=== PATIENT | female | born 1950 | race Two or more races ===

== ENCOUNTER 2025-08-29 09:55 | Inpatient (IN) | payer OTHER, MEDICARE, SELFPAY ==
[2025-08-29] VITALS (15 sets, daily range): BP systolic 93–140; BP diastolic 61–89; PULSE 75–116; RESP 20–35; TEMP 36.5–36.9; O2SAT 91–97; BMI 30.8
--- NOTE | 2025-08-29 09:58 | EKG_ITS ---
[facility] Test Date: 2025-08-29 Pat Name: KENNEDY HUERTAS Department: Room: - Gender: Female Sales Marketing Coordinator: : 1950 Requested By: Antoinette Barfield Order Number: [id number] Reading MD: Antoinette Barfield Measurements Intervals Ruffin Rate: 89 P: 46 MI: 146 QRS: -54 QRSD: 120 T: 38 QT: 409 QTc: 500 Interpretive Statements SINUS RHYTHM RIGHT BUNDLE BRANCH BLOCK [120+ ms QRS DURATION, UPRIGHT V1, 40+ ms S IN I/aVL/V4/V5/V6] LEFT ANTERIOR FASCICULAR BLOCK [QRS AXIS <= -45, QR IN I, RS IN II] POSSIBLE ANTERIOR MYOCARDIAL INFARCTION , OF INDETERMINATE AGE [30 ms Q WAVE IN V3/V4, OR R < 0.2 mV IN V4] No previous ECG available for comparison /[id number]/[email or web address]/[id number].pdf
--- NOTE | 2025-08-29 10:06 | XR_ITS ---
EXAMINATION: AP chest portable single view TECHNIQUE: AP portable chest single view Date and time: August 29, 2025, 1045 hours, comparison February 12, 2017 INDICATIONS: Chest pain today. 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
--- NOTE | 2025-08-29 10:06 | PD.EDRME ---
Rapid Medical Screening Exam RME Arrival date/time: 08/29/25 09:55 74-year-old female with no known medical history presents to the emergency room with a chief complaint of 9 out of 10 sternal chest pain that radiates up her neck x 2 days I have greeted and performed a focused initial assessment of this patient. A comprehensive ED assessment and evaluation of the patient, analysis of all test results, and completion of the medical decision making process will be conducted by additional ED providers. Chief Complaint: Chest Pain Vital signs reviewed by provider: Yes Exam: Clear bilateral lung sounds Strong and regular rhythm S1 and S2 noted no murmurs no clicks no JVD no bilateral lower extremity edema Clinical Impression: STEMI/NSTEMI/chest pain/costochondritis/pneumonia
[2025-08-29 10:32] LABS: Basophils # (Auto) 0.0 Thou/mm3 (0.0-0.2); Basophils % (Auto) 1 % (0-2.5); Eosinophils # (Auto) 0.3 Thou/mm3 (0.0-0.5); Eosinophils % (Auto) 4 % (0-10); Hematocrit 38.4 % (36.0-46.0); Hemoglobin 11.9 g/dL (12.0-16.0); Immature Granulocytes Auto 0.01 Thou/mm3 (0.00-0.00); Lymphocytes # (Auto) 2.1 Thou/mm3 (1.0-4.8); Lymphocytes % (Auto) 30 % (10-50); Mean Corpuscular HGB Conc 31.0 g/dl (31.0-37.0); Mean Corpuscular Hemoglobin 27.9 pg (25.0-35.0); Mean Corpuscular Volume 90 fL (80-100); Monocytes # (Auto) 0.4 Thou/mm3 (0.0-0.8); Monocytes % (Auto) 6 % (0-12); Neutrophils # (Auto) 4.3 Thou/mm3 (1.8-7.7); Neutrophils % (Auto) 60 % (37-80); Nucleated Red Blood Cell # 0.00 Thou/mm3 (0.00-0.00); Nucleated Red Blood Cell % 0 /100 WBC (0); Platelet Count 293 Thou/mm3 (140-440); RDW Standard Deviation 48.2 fL (36.4-46.3); Red Blood Count 4.26 Miln/mm3 (4.00-5.20); White Blood Count 7.1 Thou/mm3 (3.6-11.0)
[2025-08-29 10:56] LABS: B-Type Natriuretic Peptide 113 pg/mL (0-100)
[2025-08-29 11:02] LABS: Alanine Aminotransferase < 7 U/L (10-49); Albumin, Serum 4.6 gm/dL (3.4-4.8); Albumin/Globulin Ratio 1.6 (1.2-2.2); Alkaline Phosphatase 115 U/L (46-116); Anion Gap 12 (7-16); Aspartate Amino Transferase 45 U/L (0-34); BUN/Creatinine Ratio 16 Ratio (12-20); Bilirubin,Total 0.3 mg/dL (0.3-1.2); Blood Urea Nitrogen 13 mg/dL (9-23); Calcium 9.4 mg/dL (8.3-10.6); Calcium (Corrected) 9.4 mg/dL (8.5-10.1); Carbon Dioxide 25.3 mMol/L (20.0-31.0); Chloride 107 mMol/L (98-107); Creatinine (Component) 0.8 mg/dL (0.6-1.3); Estimated Creatinine Clearance 52.9 mL/min (>60); Free T4 (Free Thyroxine) 1.12 ng/dL (0.89-1.76); Globulin 2.8 gm/dL (2.3-3.5); Glucose 168 mg/dL (74-106); Magnesium 1.8 mg/dL (1.6-2.6); Osmolality,Calculated 290 (275-295); Potassium 4.6 mMol/L (3.4-5.1); Sodium 144 mMol/L (136-145); Thyroid Stimulating Hormone 1.95 uIU/mL (0.55-4.78); Total Protein 7.4 gm/dL (5.7-8.2); eGFR > 60 See Note
[2025-08-29 11:03] LABS: Troponin I 4.585 ng/mL (0.0-0.045)
[2025-08-29 12:03] LABS: Collection Type, Urine Clean Catch
--- NOTE | 2025-08-29 12:18 | EDNOTE_ITS ---
ED Chest Pain RME/HPI General Chief Complaint: Chest Pain Stated Complaint: CHEST PAIN RADIATING TO BACK X 1 WK Arrival date/time: 08/29/25 09:55 RME / HPI RME / HPI narrative: 08/29/25 09:55 74-year-old female with no known medical history presents to the emergency room with a chief complaint of 9 out of 10 sternal chest pain that radiates up her neck x 2 days I have greeted and performed a focused initial assessment of this patient. A comprehensive ED assessment and evaluation of the patient, analysis of all test results, and completion of the medical decision making process will be conducted by additional ED providers. DR. BLAKE MAIN ED EVALUATION 74 year old female with history of anxiety and depression, s/p cholecystectomy, presents to the ED for evaluation of chest pain beginning 2 days ago and worsening last night. Pain described as aching in sensation that is located across her chest with no radiation, rating 8/10 in severity. States she has taken Tylenol at home with no improvement. Denies cough, shortness of breath, abdominal pain, nausea, vomiting, or sweats. No known modifying or aggravating factors reported. No history of similar pain. Denies seeing a pr internship. Current medications includes: Hydroxyzine, Vitamins, Mirtazapine, and Gabapentin. Exam: Clear bilateral lung sounds Strong and regular rhythm S1 and S2 noted no murmurs no clicks no JVD no bilateral lower extremity edema Impression: STEMI/NSTEMI/chest pain/costochondritis/pneumonia Related Data Home Medications ?Medication ?Instructions ?Recorded ?Confirmed Calcium Carbonate * (CALTRATE *) 600 mg PO BID #0 tabs 02/18/[address] 60 mg BID ##0 02/18/16 ibuprofen 600 mg tablet 600 mg PO TID PRN PAIN #0 ta bs 02/18/16 PERSEVISION ##0 02/12/17 Previous Rx's ?Medication ?Instructions ?Recorded Hydrocodone/Acetaminophen * (NORCO 1 tab PO Q6H PRN AB DOMINAL PAIN 02/13/17 7.5/325 *) #30 tabs Allergies Allergy/AdvReac Type Severity Reaction Status Date / Time No Known Allergies Allergy Verified 08/29/25 09:57 Review of Systems Review of Systems Systems Reviewed: All systems reviewed, normal except as documented Past Medical History Past Medical History CARDIAC: Negative Congestive Heart Failure RESPIRATORY: Negative Chronic Obstructive Pulmonary Disease (COPD) GENITOURINARY: Negative Renal Disease ENDOCRINE: Negative Diabetes Mellitus Type 1 or Diabetes Mellitus Type 2 PSYCHO/SOCIAL: Positive Depression and Anxiety Social History SMOKING STATUS: Never smoker ED Exam Narrative Physical exam: GENERAL APPEARANCE: alert and oriented x 4, well-developed, well-nourished, grimacing, depressed affect, tearful HEENT: Normocephalic, atraumatic; pupils equal, round, reactive to light; EOMI; mucous membranes pink, moist; oropharynx clear NECK: Supple LUNGS: CTABL; no wheezes, no rales, no rhonchi HEART: Regular rate, regular rhythm; normal S1, S2; no murmurs ABDOMEN: non distended; normal BS; soft, no tenderness, no guarding, no rebound; no masses, no organomegaly, no hernia BACK: no CVA tenderness EXTREMITIES: atraumatic; no edema NEUROLOGIC: awake; alert and oriented x4; cranial nerves II-XII grossly intact; no focal sensory or motor deficits PSYCHIATRIC: Depressed affect, tearful SKIN: warm, dry, normal color; no rashes Course Quality Measures none Orders Category Date Time Status EKG (ED ONLY) *Do not use* NOW Care 08/29/25 09:59 Completed Notify provider NOW Care 08/29/25 13:32 Active Consult to Cardiology Stat Cons 08/29/25 13:34 Ordered EKG (ED Only) Stat Exams 08/29/25 09:58 Draft XR chest 1V portable Stat Exams 08/29/25 10:06 Completed B-Type Natriuretic Peptide Stat Lab 08/29/25 10:18 Completed CBC Stat Lab 08/29/25 10:18 Completed Comprehensive Metabolic Panel Stat Lab 08/29/25 10:18 Completed Free T4 (Free Thyroxine) Stat Lab 08/29/25 10:18 Completed Magnesium Stat Lab 08/29/25 10:18 Completed PTT [Partial Thromboplastin Time] Stat Lab 08/29/25 13:54 Completed Partial Thromboplastin Time AM DRAW Lab 08/31/25 05:00 Ordered Prothrombin Time with INR AM DRAW Lab 08/31/25 05:00 Ordered TSH [Thyroid Stimulating Hormone] Stat Lab 08/29/25 10:18 Completed Troponin I Stat Lab 08/29/25 10:18 Completed Urinalysis, C/S if Indicated Stat Lab 08/29/25 11:51 Completed Aspirin Chew Med 08/29/25 12:15 Discontinued 324 mg PO X1 ONE Clopidogrel [Plavix] Med 08/29/25 13:33 Discontinued 300 mg PO X1 ONE Heparin Inj Med 08/29/25 13:32 Discontinued 4,000 unit IV X1 ONE Morphine* Inj Med 08/29/25 13:37 Discontinued 2 mg IVP X1 ONE Nitroglycerin [Nitrostat 1/150] Med 08/29/25 13:38 Active 0.4 mg SL Q5MIN PRN Nitroglycerin [Nitrostat 1/150] Med 08/29/25 12:15 Discontinued 0.4 mg SL X1 ONE Ondansetron Inj [Zofran Inj] Med 08/29/25 13:37 Discontinued 4 mg IVP X1 ONE Vital Signs Vital signs: Vital Signs Temperature 98.0 F 08/29/25 09:59 Pulse Rate 89 08/29/25 09:59 Respiratory Rate 20 08/29/25 09:59 Blood Pressure 130/84 08/29/25 09:59 Pulse Oximetry (%) 94 L 08/29/25 09:59 Oxygen Delivery Method Room Air 08/29/25 09:59 Pulse ox is 94% on room air which is adequate. Chest Pain MDM Narrative MDM Narrative:: I, Hallie Anaya, am scribing for and in the presence of Dr. Blake. 1240p: I have informed pr internship Dr. Diamond of patients EKG and lab findings. Currently is in a procedure and will call back. 1326p: Esters And Emulsifiers Supervisor Dr. Diamond has evaluated the patient in the ED. Reports patient is having an NSTEMI. He recommends starting the patient on Aspirin, Plavix, and Heparin. Will cath the patient tomorrow. He agrees to consult. 1330p: I spoke with hospitalist team A for admission. Patient data External records reviewed:: [facility] previous records Clinical information provided by:: patient Social determinants that could affect healthcare access:: mental health Patient has the following chronic illnesses:: Anxiety and depression How is presenting disease/condition affected by chronic disease/condition?: uneffected by Evaluation data The following diagnostics were reviewed and interpreted by me:: lab results, radiology exam(s) and EKG tracing(s) (EKG @ 10:04am, interpreted by me, normal sinus rhythm, rate 89, right bundle branch block, left anteriro fascicular block. ) Lab and/or radiology exams considered but not ordered:: None Interpretation Summary: Ordering Physician: Surinder Obrien Date of Service: 08/29/25 Procedure(s): XR chest 1V portable Accession Number(s): [id number] cc: Surinder Obrien; Alex Portillo MD; NO PRIMARY/FAMILY,PHYSICIAN~ EXAMINATION: AP chest portable single view TECHNIQUE: AP portable chest single view Date and time: August 29, 2025, 1045 hours, comparison February 12, 2017 INDICATIONS: Chest pain today. 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 Dictated By: Alex Portillo MD Signed By: <Electronically signed by Alex Portillo MD in OV> 08/29/25 1118 Medications / Prescriptions Medications or Prescriptions considered but not ordered:: None Medication administrations:: Medication Administration History Acetaminophen (Acetaminophen Supp 650 Mg Supp) 650 mg IN Q6HR PRN PRN Reason: Fever > 100.4 and pain 1-4 Stop: 09/28/25 14:24 Aspirin (Aspirin Ec 81 Mg Tabec) 81 mg PO QDAY [facility]UL[facility] Stop: 09/29/25 08:59 Atorvastatin Calcium (Atorvastatin Calcium 20 Mg Tablet) 80 mg PO HS JULIA Stop: 09/28/25 20:59 Clopidogrel Bisulfate (Clopidogrel Bisulfate 75 Mg Tablet) 75 mg PO QDAY JULIA Stop: 09/29/25 08:59 Docusate Sodium (Docusate Sod 100 Mg Capsule) 100 mg PO QDAY PRN; Protocol PRN Reason: CONSTIPATION Stop: 09/28/25 14:24 Gabapentin (Gabapentin 100 Mg Capsule) 100 mg PO TID JULIA Stop: 09/28/25 21:59 Hydroxyzine HCl (Hydroxyzine Hcl 25 Mg Tablet) 25 mg PO HS JULIA Stop: 09/28/25 20:59 Heparin Sodium/Dextrose (Heparin In D5w Ivpb) 25,000 unit in 250 mls @ 8.6 mls/hr IV .Q24H JULIA; Protocol Stop: 09/12/25 15:14 Metoprolol Succinate (Metoprolol Succinate Xl 25 Mg Tabcr) 25 mg PO QDAY [facility]UL[facility] Stop: 09/28/25 15:14 Mirtazapine (Mirtazapine 15 Mg Tablet) 30 mg PO QDAY JULIA Stop: 09/29/25 08:59 Nitroglycerin (Nitroglycerin 0.4 Mg Subl Btl #25) 0.4 mg SL Q5MIN PRN PRN Reason: CHEST PAIN Ondansetron HCl (Ondansetron Inj 2 Mg/Ml Inj 2 Ml) 4 mg IVP Q6H PRN; Protocol PRN Reason: NAUSEA OR VOMITING Stop: 09/28/25 14:24 Pantoprazole Sodium (Pantoprazole 40 Mg Tablet) 40 mg PO QDAY [facility] Stop: 09/29/25 08:59 Sennosides (Senna Tablet) 1 tab PO QDAY PRN; Protocol PRN Reason: constipation Stop: 09/28/25 14:24 Discontinued Medications Aspirin (Aspirin 81 Mg Chew) 324 mg PO X1 ONE Stop: 08/29/25 12:16 Last Admin: 08/29/25 12:42 Dose: 324 mg Documented By: DEVYN Clopidogrel Bisulfate (Clopidogrel Bisulfate 75 Mg Tablet) 300 mg PO X1 ONE Stop: 08/29/25 13:34 Last Admin: 08/29/25 14:15 Dose: 300 mg Documented By: YONI Heparin Sodium (Porcine) (Heparin Sod Inj 5000 Unit/Ml Vial) 4,000 unit IV X1 ONE; Protocol Stop: 08/29/25 13:33 Last Admin: 08/29/25 15:02 Dose: 4,000 unit Documented By: YONI Co-signed By: DEVYN Morphine Sulfate (Morphine Sulf Inj 4 Mg/Ml Vial) 2 mg IVP X1 ONE Stop: 08/29/25 13:38 Last Admin: 08/29/25 14:12 Dose: 2 mg Documented By: YONI Nitroglycerin (Nitroglycerin 0.4 Mg Subl Btl #25) 0.4 mg SL X1 ONE Stop: 08/29/25 12:16 Last Admin: 08/29/25 12:43 Dose: 1 tab Documented By: DEVYN Ondansetron HCl (Ondansetron Inj 2 Mg/Ml Inj 2 Ml) 4 mg IVP X1 ONE Stop: 08/29/25 13:38 Last Admin: 08/29/25 14:14 Dose: 4 mg Documented By: YONI See above Consultations Consultation(s) initiated? (list below): Yes Consultation #1 (Physician, Specialty, Details): See MDM Diagnosis Chest Pain Differential Diagnosis: stable angina, atypical chest pain, st elevation myocardial infarction and chest pain Most likely diagnosis given after review of the tests above:: NSTEMI Admission Indicated Admission indicated?: indicated Admission Request Was there a request for admission?: Yes Admission Attestation Admission request attestation: Discussed case with [] from Hospitalist service regarding admission. Discussed patients ED course, exam findings, labs, and radiology results. The Hospitalist [agrees,declines] to accept the patient for admission. Disposition Plan Disposition Plan: Admit Discharge Plan Plan Patient Disposition: Admit Acute Care w/in Hospital Problem List Clinical Impression: Non-ST elevation ND (NSTEMI)
[2025-08-29] MEDS: ASPIRIN 81 MG CHEW 324 MG PO (12:42)
[2025-08-29 12:43] LABS: Bilirubin,Urine Negative (Negative); Blood,Urine Negative (Negative); Clarity,Urine Clear (Clear/Hazy); Color,Urine Yellow (Lt Yel-Yel); Culture Indicated,Urine Not Indicated; Glucose, Urine Negative (Negative); Hyaline Casts,Urine < 1 /hpf (0-1); Ketones,Urine Negative (Negative); Leukocyte Esterase,Urine Positive (Negative); Nitrite,Urine Negative (Negative); PH,Urine 5.5 (5.0-7.0); Protein,Urine Trace (Neg - Trace); RBC,Urine 7 /hpf (0-3); Specific Gravity,Urine 1.028 (1.001-1.035); Squamous Epithelial Cell,Urine 3 /hpf (0-5); Urobilinogen,Urine Negative mg/dL (0.0-1.0); WBC,Urine 9 /hpf (0-5)
[2025-08-29] MEDS: NITROGLYCERIN 0.4 MG SUBL BTL #25 SL ×3 (12:43→17:37)
[2025-08-29] MEDS: MORPHINE SULF INJ 4 MG/ML VIAL 2 MG IVP (14:12)
[2025-08-29] MEDS: ONDANSETRON INJ 2 MG/ML INJ 2 ML 4 MG IVP (14:14)
[2025-08-29] MEDS: CLOPIDOGREL BISULFATE 75 MG TABLET 300 MG PO (14:15)
[2025-08-29 14:23] LABS: Partial Thromboplastin Time 25.9 Seconds (22.0-36.0)
[2025-08-29] MEDS: HEPARIN SOD INJ 5000 UNIT/ML VIAL 4000 UNIT IV (15:02)
--- NOTE | 2025-08-29 16:33 | ESCONSULT_ITS ---
<Statement entered by Dexter Diamond MD - 09/03/25 18:42> I personally evaluated examined this patient emergency room admitted the hospital severe chest pain for 3 to 4 days came to the hospital delayed presentation troponin is elevated not have any more chest pain has some back pain as well. She is hemodynamically stable EKG showed slight ST changes with tall R wave V1 V2 mild ST depression possible posterior lateral myocardial infarction recently with 1 mm elevation 1 and aVL. Patient stable clinically started on aspirin and heparin as a Plavix. Evaluated patient with resident physician in the emergency department patient is stable to have coronary angiogram electrical installation supervisor and will monitor the patient closely for any further ischemia or pain patient is quite stable without any significant chest pain this evening and but troponin was significantly elevated suggesting the patient clearly had a myocardial infarction possible lateral and posterolateral myocardial infarction circumflex or distal RCA occlusion. Will arrange for coronary angiogram early in the morning. HPI Data of Consult Requesting Physician: Leonor Robb MD Admitting Provider: Leonor Robb MD Attending Provider: Leonor Robb MD Primary Care Provider: Physician No Primary/Family Consult Narrative Reason for consult: Chest pain, NSTEMI 1 History of present illness: Patient is 74-year-old female past medical history Of anxiety and depression presenting to ED due to 2 days of worsening chest pain. Patient states that she has recently been sick for about a week. Started experiencing chest pain bilaterally. Describes as a tightness that radiates to back of her neck that is constant. Denies any nausea, vomiting, headache. No cough. And patient will take Tylenol as needed for pain. At baseline she does not experience any chest pain on exertion or at rest, denies any diaphoresis, lightheadedness, palpitation. Does endorse shortness of breath walking distances such as in the grocery store or when she takes care of her nephew. Patient has no reported risk factors such as hypercholesterolemia or diabetes. Family history pertinent mother from heart attack, father after he was struck by lightning. She denies any smoking or drinking. Has not had any cardiac workup in the past. Pain initially 9/10 but has improved to 4/10 after receiving pain medication. Vitals are stable, labs reviewed and unremarkable. Noted to have elevated troponin 4.58, TSH normal, magnesium 1.8. EKG showed a regular rate 89. Cardiology consulted for NSTEMI type I started on heparin drip. Given aspirin and Plavix loading dose. Patient will be taken for angiogram tomorrow morning. PMH: Noted above PSH: Laparoscopic cholecystectomy 2017 Family history noted above Meds: Duloxetine 60 twice daily, ibuprofen 600 as needed, hydroxyzine Allergies: NKDA cc:: cc: Leonor Robb MD Review of Systems Review of Systems Systems Reviewed: All systems reviewed, normal except as documented Exam Vital Signs Temp Pulse Resp BP Pulse Ox O2 Del Method 98.3 F 93 25 H 106/84 94 L Room Air 08/29/25 16:11 08/29/25 16:11 08/29/25 16:11 08/29/25 16:11 08/29/25 16:11 08/29/25 16:11 Narrative Exam General: Alert and oriented x3. No acute distress, cooperative HEENT: NCAT, No JVD noted. Mucosa moist. Pupils are equal and reactive to light bilaterally Cardiovascular: Normal S1 and S2. Regular rate and rhythm. No pain to palpation Respiratory: signnificant wheezing and rhonchi bilaterally Abdomen: Soft, nontender, not distended, normal bowel sounds. Skin: Warm to touch, dry, no rashes noted Musculoskeletal: No gross injuries. Able to move all 4 extremities. No pitting edema Neuro: Alert and oriented x3. No focal neuro deficits. Psych: Normal affect and mood Results Labs 08/29/25 22:05 08/29/25 22:05 Labs: Short CBC 08/29/25 Range/Units 10:18 WBC 7.1 (3.6-11.0) Thou/mm3 Hgb 11.9 L (12.0-16.0) g/dL Hct 38.4 (36.0-46.0) % Plt Count 293 (140-440) Thou/mm3 BMP 08/29/25 10:18 Sodium 144 Potassium 4.6 Chloride 107 Carbon Dioxide 25.3 BUN 13 Creatinine 0.8 Glucose 168 H Calcium 9.4 Cardiac Enzymes 08/29/25 Range/Units 10:18 Troponin I 4.585 H* (0.0-0.045) ng/mL Liver Function 08/29/25 Range/Units 10:18 Total Bilirubin 0.3 (0.3-1.2) mg/dL AST 45 H (0-34) U/L ALT < 7 L (10-49) U/L Alkaline Phosphatase 115 (46-116) U/L Albumin 4.6 (3.4-4.8) gm/dL Urine 08/29/25 Range/Units 11:51 Urine Color Yellow (Lt Yel-Yel) Urine Clarity Clear (Clear/Hazy) Urine pH 5.5 (5.0-7.0) Ur Specific [place] 1.028 (1.001-1.035) Urine Protein Trace (Neg - Trace) Urine Glucose (UA) Negative (Negative) Quality Measures Quality Measures none Advance care planning discussed with:: patient Medications Home Medications and Allergies Home Medications ?Medication ?Instructions ?Recorded ?Confirmed ?Type Calcium Carbonate * (CALTRATE *) 600 mg PO BID #0 tabs 02/18/[address] 60 mg BID ##0 02/18/16 Hist ory ibuprofen 600 mg tablet 600 mg PO TID PRN PAIN #0 ta bs 02/18/16 History PERSEVISION ##0 02/12/17 History Allergies Allergy/AdvReac Type Severity Reaction Status Date / Time No Known Allergies Allergy Verified 08/29/25 09:57 Visit Medications Acetaminophen (Acetaminophen Supp 650 Mg Supp) 650 mg IN Q6HR PRN PRN Reason: Fever > 100.4 and pain 1-4 Stop: 09/28/25 14:24 Aspirin (Aspirin Ec 81 Mg Tabec) 81 mg PO QDAY [facility] Stop: 09/29/25 08:59 Atorvastatin Calcium (Atorvastatin Calcium 20 Mg Tablet) 80 mg PO HS [facility] Stop: 09/28/25 20:59 Clopidogrel Bisulfate (Clopidogrel Bisulfate 75 Mg Tablet) 75 mg PO QDAY [facility] Stop: 09/29/25 08:59 Docusate Sodium (Docusate Sod 100 Mg Capsule) 100 mg PO QDAY PRN; Protocol PRN Reason: CONSTIPATION Stop: 09/28/25 14:24 Gabapentin (Gabapentin 100 Mg Capsule) 100 mg PO TID [facility] Stop: 09/28/25 21:59 Hydroxyzine HCl (Hydroxyzine Hcl 25 Mg Tablet) 25 mg PO HS [facility] Stop: 09/28/25 20:59 Heparin Sodium/Dextrose (Heparin In D5w Ivpb) 25,000 unit in 250 mls @ 8.6 mls/hr IV .Q24H [facility]; Protocol Stop: 09/12/25 15:14 Metoprolol Succinate (Metoprolol Succinate Xl 25 Mg Tabcr) 25 mg PO QDAY [facility]UL[facility] Stop: 09/28/25 15:14 Mirtazapine (Mirtazapine 15 Mg Tablet) 30 mg PO QDAY JULIA Stop: 09/29/25 08:59 Nitroglycerin (Nitroglycerin 0.4 Mg Subl Btl #25) 0.4 mg SL Q5MIN PRN PRN Reason: CHEST PAIN Ondansetron HCl (Ondansetron Inj 2 Mg/Ml Inj 2 Ml) 4 mg IVP Q6H PRN; Protocol PRN Reason: NAUSEA OR VOMITING Stop: 09/28/25 14:24 Pantoprazole Sodium (Pantoprazole 40 Mg Tablet) 40 mg PO QDAY [facility] Stop: 09/29/25 08:59 Sennosides (Senna Tablet) 1 tab PO QDAY PRN; Protocol PRN Reason: constipation Stop: 09/28/25 14:24 Discontinued Medications Aspirin (Aspirin 81 Mg Chew) 324 mg PO X1 ONE Stop: 08/29/25 12:16 Last Admin: 08/29/25 12:42 Dose: 324 mg Clopidogrel Bisulfate (Clopidogrel Bisulfate 75 Mg Tablet) 300 mg PO X1 ONE Stop: 08/29/25 13:34 Last Admin: 08/29/25 14:15 Dose: 300 mg Heparin Sodium (Porcine) (Heparin Sod Inj 5000 Unit/Ml Vial) 4,000 unit IV X1 ONE; Protocol Stop: 08/29/25 13:33 Last Admin: 08/29/25 15:02 Dose: 4,000 unit Morphine Sulfate (Morphine Sulf Inj 4 Mg/Ml Vial) 2 mg IVP X1 ONE Stop: 08/29/25 13:38 Last Admin: 08/29/25 14:12 Dose: 2 mg Nitroglycerin (Nitroglycerin 0.4 Mg Subl Btl #25) 0.4 mg SL X1 ONE Stop: 08/29/25 12:16 Last Admin: 08/29/25 12:43 Dose: 1 tab Ondansetron HCl (Ondansetron Inj 2 Mg/Ml Inj 2 Ml) 4 mg IVP X1 ONE Stop: 08/29/25 13:38 Last Admin: 08/29/25 14:14 Dose: 4 mg Assessment & Plan Plan Patient is 74-year-old female past medical history of anxiety and depression presenting to ED due to 2 days of worsening chest pain. Cardiology consulted for NSTEMI type I started on heparin drip. Given aspirin and Plavix loading dose. Patient will be taken for angiogram tomorrow morning. #NSTEMI type I Started experiencing chest pain bilaterally. Describes as a tightness that radiates to back of her neck that is constant. Denies any nausea, vomiting, headache. No cough. At baseline she does not experience any chest pain on exertion or at rest, denies any diaphoresis, lightheadedness, palpitation. Endorses SOB when walking for ADLs. Noted to have elevated troponin 4.58. Given aspirin and Plavix loading dose in ED. initial vitals were stable. EKG EKG showed a regular rate 89, no ST changes. -Continue heparin drip per [facility] protocol -Aspirin 81 mg daily -Plavix 75 mg daily -Patient will undergo cardiac cath tomorrow ? N.p.o. at midnight ? Follow-up with echo ? Trend troponins every 6 hours -Repeat EKG for any acute changes in pain #Anxiety #Depression Primary care team to manage above conditions and ongoing care needs. The patient's management plan was discussed with my attending physician Dr. Diamond. Fartun Durant, PGY-2 Attending Provider Attestation/Addendum The patient was evaluated by me in the evening hours after I saw the patient around 7:30 PM couple of hours later patient developed sudden pulseless electrical rhythm PEA cardiac arrest CODE BLUE was called patient could not be resuscitated patient had a normal stable electrical rhythm with no V-fib or asystole but developed severe hypotension suddenly highly suspicious for myocardial rupture consistent with 3 to 4 days post myocardial infarction delayed presentation to the hospital posterior wall myocardial infarction lateral wall myocardial infarction remote found to have mechanical complication such as a cardiac rupture and possibly tamponade causing cardiac arrest and PEA.
[2025-08-29] MEDS: Heparin/D5w 25K 250 ML Ivpb 25,000 UNIT/250 ML BAG 8.6 UNIT IV (17:28)
[2025-08-29] MEDS: METOPROLOL SUCCINATE XL 25 MG TABCR PO (17:32)
--- NOTE | 2025-08-29 17:42 | ESHP_ITS ---
<Statement entered by Leonor Robb MD - 09/08/25 08:26> I reviewed above note and agree with findings and plans. I have also personally examined the patient with medicine team and went over assessment and plan with medical team including internal medicine physician assistant and resident physician. <Statement entered by Denny Gallagher MD - 08/30/25 13:33> Patient was examined and case was reviewed with team including attending physician. Note reviewed, I agree with most of its contents and agree with the patient's care. Denny Gallagher MD PGY-2 Documentation for date of: 08/29/25 HPI History of Present Illness History of present illness: 74-year-old female with a past medical history of anxiety and depression presents to the ED on 08/29 with bilateral chest pain that began gradually 2 days ago. She reports having flu-like symptoms for the past week, including headache and body aches, but denies fever, cough, or shortness of breath. Around the same time as the flu-like symptoms, the patient also developed back pain, which has improved with Tylenol. The back pain then began to radiate to her chest, where the pain now feels like a constant pressure sensation. She denies dysuria, nausea, vomiting, or diarrhea. The patient mentions significant stress in her life, specifically from taking care of her nephew, which has been adding to her anxiety. She is concerned that the chest pain might be due to pneumonia, as she has had it in the past. ED Course: -Initial vitals were: BP 130/84, HR 89, RR 20, 98.0F, O2 sat 94% on room air. -Labs significant for: Hgb 11.9, glucose 168, AST 45, troponin 4.585, BNP 113, UA with positive leukocyte esterase and 9 WBC. -Imaging included: CXR: diffuse interstitial disease throughough the lungs, retrocardiac gastric hernia. -In the ED, patient was given: Aspirin 324 mg POx1, Nitroglycerin 0.4mg SLx1, Morphine 2mg IVX1, Ondansetron 4mg IVx1, clopidogrel 300mg PO x1, heparin 4000 units x1. Past Medical History: as above Past Surgical History: total hysterectomy, appendectomy. Family History: mother from [place]. Social History: - Smoking: none - Alcohol: socially - Illicit drugs: none - Residence: lives with nephrew Current Medications: pending med recs. Allergies: No known drug allergies. Review of Systems Review of Systems Narrative Review of Systems: All 13 review of systems are negative except as listed above in the HPI. Exam Vital Signs Temp Pulse Resp BP Pulse Ox O2 Del Method 98.3 F 87 27 H 100/67 91 L Room Air 08/29/25 16:11 08/29/25 17:35 08/29/25 17:35 08/29/25 17:35 08/29/25 17:35 08/29/25 17:35 Narrative Exam Physical Exam General: Awake and in no acute distress. Conversational and non-toxic appearing. HEENT: Normocephalic, atraumatic, extraocular movements intact, pupils equal and reactive to light. No JVD or bruits. Heart: Regular rate and rhythm, no murmurs, rubs or gallops. No pain to palpation. Lungs: Rhonchi bilaterally in the lower lobes. Non-labored respirations, symmetric chest rise, no use of accessory muscles. Abdomen: Soft, nondistended, nontender. No guarding or rebound tenderness. Neurologic: Alert and oriented x3, no gross neurological deficit, and patient able to move all 4 extremities. Extremities: No edema, clubbing or cyanosis. No joint deformity. Skin: Warm and dry without rashes. Psychiatric: Teary eyed and anxious. Results: Labs 08/29/25 22:05 08/29/25 22:05 Labs: Short CBC 08/29/25 Range/Units 10:18 WBC 7.1 (3.6-11.0) Thou/mm3 Hgb 11.9 L (12.0-16.0) g/dL Hct 38.4 (36.0-46.0) % Plt Count 293 (140-440) Thou/mm3 BMP 08/29/25 10:18 Sodium 144 Potassium 4.6 Chloride 107 Carbon Dioxide 25.3 BUN 13 Creatinine 0.8 Glucose 168 H Calcium 9.4 Cardiac Enzymes 08/29/25 08/29/25 Range/Units 10:18 16:44 Troponin I 4.585 H* 30.931 H* D (0.0-0.045) ng/mL Liver Function 08/29/25 Range/Units 10:18 Total Bilirubin 0.3 (0.3-1.2) mg/dL AST 45 H (0-34) U/L ALT < 7 L (10-49) U/L Alkaline Phosphatase 115 (46-116) U/L Albumin 4.6 (3.4-4.8) gm/dL Urine 08/29/25 Range/Units 11:51 Urine Color Yellow (Lt Yel-Yel) Urine Clarity Clear (Clear/Hazy) Urine pH 5.5 (5.0-7.0) Ur Specific [place] 1.028 (1.001-1.035) Urine Protein Trace (Neg - Trace) Urine Glucose (UA) Negative (Negative) Quality Measures Quality Measures none Advance care planning discussed with:: patient Medications Home Medications and Allergies Home Medications ?Medication ?Instructions ?Recorded ?Confirmed ?Type Calcium Carbonate * (CALTRATE *) 600 mg PO BID #0 tabs 02/18/[address] 60 mg BID ##0 02/18/16 Hist ory ibuprofen 600 mg tablet 600 mg PO TID PRN PAIN #0 ta bs 02/18/16 History PERSEVISION ##0 02/12/17 History Allergies Allergy/AdvReac Type Severity Reaction Status Date / Time No Known Allergies Allergy Verified 08/29/25 09:57 Visit Medications Acetaminophen (Acetaminophen Supp 650 Mg Supp) 650 mg MS Q6HR PRN PRN Reason: Fever > 100.4 and pain 1-4 Stop: 09/28/25 14:24 Aspirin (Aspirin Ec 81 Mg Tabec) 81 mg PO QDAY [facility] Stop: 09/29/25 08:59 Atorvastatin Calcium (Atorvastatin Calcium 20 Mg Tablet) 80 mg PO HS [facility] Stop: 09/28/25 20:59 Clopidogrel Bisulfate (Clopidogrel Bisulfate 75 Mg Tablet) 75 mg PO QDAY [facility] Stop: 09/29/25 08:59 Docusate Sodium (Docusate Sod 100 Mg Capsule) 100 mg PO QDAY PRN; Protocol PRN Reason: CONSTIPATION Stop: 09/28/25 14:24 Gabapentin (Gabapentin 100 Mg Capsule) 100 mg PO TID [facility] Stop: 09/28/25 21:59 Hydroxyzine HCl (Hydroxyzine Hcl 25 Mg Tablet) 25 mg PO HS [facility] Stop: 09/28/25 20:59 Heparin Sodium/Dextrose (Heparin In D5w Ivpb) 25,000 unit in 250 mls @ 8.6 mls/hr IV .Q24H JULIA; Protocol Stop: 09/12/25 15:14 Last Admin: 08/29/25 17:28 Dose: 12 units/kg/hr, 8.6 mls/hr Metoprolol Succinate (Metoprolol Succinate Xl 25 Mg Tabcr) 25 mg PO QDAY [facility] Stop: 09/28/25 15:14 Last Admin: 08/29/25 17:32 Dose: 25 mg Mirtazapine (Mirtazapine 15 Mg Tablet) 30 mg PO QDAY [facility] Stop: 09/29/25 08:59 Nitroglycerin (Nitroglycerin 0.4 Mg Subl Btl #25) 0.4 mg SL Q5MIN PRN PRN Reason: CHEST PAIN Last Admin: 08/29/25 17:30 Dose: 0.4 mg Ondansetron HCl (Ondansetron Inj 2 Mg/Ml Inj 2 Ml) 4 mg IVP Q6H PRN; Protocol PRN Reason: NAUSEA OR VOMITING Stop: 09/28/25 14:24 Pantoprazole Sodium (Pantoprazole 40 Mg Tablet) 40 mg PO QDAY [facility] Stop: 09/29/25 08:59 Sennosides (Senna Tablet) 1 tab PO QDAY PRN; Protocol PRN Reason: constipation Stop: 09/28/25 14:24 Discontinued Medications Aspirin (Aspirin 81 Mg Chew) 324 mg PO X1 ONE Stop: 08/29/25 12:16 Last Admin: 08/29/25 12:42 Dose: 324 mg Clopidogrel Bisulfate (Clopidogrel Bisulfate 75 Mg Tablet) 300 mg PO X1 ONE Stop: 08/29/25 13:34 Last Admin: 08/29/25 14:15 Dose: 300 mg Heparin Sodium (Porcine) (Heparin Sod Inj 5000 Unit/Ml Vial) 4,000 unit IV X1 ONE; Protocol Stop: 08/29/25 13:33 Last Admin: 08/29/25 15:02 Dose: 4,000 unit Morphine Sulfate (Morphine Sulf Inj 4 Mg/Ml Vial) 2 mg IVP X1 ONE Stop: 08/29/25 13:38 Last Admin: 08/29/25 14:12 Dose: 2 mg Nitroglycerin (Nitroglycerin 0.4 Mg Subl Btl #25) 0.4 mg SL X1 ONE Stop: 08/29/25 12:16 Last Admin: 08/29/25 12:43 Dose: 1 tab Ondansetron HCl (Ondansetron Inj 2 Mg/Ml Inj 2 Ml) 4 mg IVP X1 ONE Stop: 08/29/25 13:38 Last Admin: 08/29/25 14:14 Dose: 4 mg Assessment & Plan Plan 74-year-old female past medical history of anxiety and depression presenting for 2 days of worsening chest pain, admitted for NSTEMI and angiogram. #NSTEMI type I - Bilaterally chest pain that started 2 days ago. - Describes as a constant chest pressure. - Denies shortness of breath, palpitation, diaphoresis, lightheadedness, palpation. - On admission, troponin 4.585 --> 30.931. - Loading dose of aspirin, plavix, and heparin given in the ED. Plan: * Continue heparin drip per [facility] protocol. * Aspirin 81 mg daily. * Plavix 75 mg daily. * Atorvastatin 80 mg daily. * Metoprolol 25 mg daily. * NPO at midnight. * Plan for cardiac cath tomorrow. * Trend troponins every 6 hours until downtrend. * Echo pending. * Repeat EKG for any acute changes in pain. #Anxiety #Depression Plan: * Resumed home hydroxyzine 25 mg QHS, mirtazapine 30 mg QD, and gabapentin 100 mg TID. Health Maintenance Disposition: tele, cardiac cath tomorrow DVT prophylaxis: Heparin drip GI prophylaxis: Pantoprazole 40 mg IV daily Diet: NPO Jew[place]: none Lines: Peripheral IV CODE STATUS: FULL --- Patient plan of care was discussed with the senior resident, Dr. Alirio Gallagher, and attending physician, Dr. Robb. Fredrick Vieyra DO PGY-1
[2025-08-29] MEDS: ATORVASTATIN CALCIUM 20 MG TABLET 80 MG PO (21:05)
[2025-08-29] MEDS: ETOMIDATE INJ 2 MG/ML VIAL 10 ML 20 MG IVP (22:13)
[2025-08-29] MEDS: ROCURONIUM INJ 10 MG/ML VIAL 10 ML 50 MG IVP (22:13)
[2025-08-29] MEDS: EPINEPHrine in NS 16 MG IVPB 16 MG/250 ML BAG 3.359 MG IV (22:13)
--- NOTE | 2025-08-29 22:18 | PC.NURSE ---
code blue initiated at 2149, 7 rounds of epi given
--- NOTE | 2025-08-29 22:20 | PC.NURSE ---
compressions started again at 2223
--- NOTE | 2025-08-29 22:24 | PC.NURSE ---
Dr. Pedroza is speaking with pt family to confirm patient outcome.
--- NOTE | 2025-08-29 22:27 | PC.NURSE ---
8th dose of epi push given
--- NOTE | 2025-08-29 22:34 | PC.NURSE ---
code ended at 8542
--- NOTE | 2025-08-29 22:38 | PC.NURSE ---
lost pulses at 2477
--- NOTE | 2025-08-29 22:40 | PD.EDADDENDU ---
Emergency Room Addendum <Leigh Gallagher - Last Filed: 08/30/25 02:59> Addendum Narrative: I was examining another patient when this patient's family member stepped out and called for help. I went and examined the patient. Patient was immediately moved to a trauma bed. 2150: Code blue initiated overhead. CPR started. 220: ROSC obtained. See code sheet for medication details. 2202: FSBS 156. 2203: Code blue initiated overhead. CPR started. 2205: Patient intubated by me. See procedure note below. 2208: Dr. Diamond, rental representative, was consulted. Recommends getting STAT EKG and administering thrombolytics if the patient is having a STEMI. 2210: ROSC obtained. 2211: Code blue initiated overhead. CPR started. 2218: ROSC obtained. 2220: Code blue initiated overhead. CPR started. 2231: ROSC obtained. I went and had a lengthy discussion with the family regarding the patient's critical condition. They understand all life saving measures are being made and state if the patient codes again, to abort further efforts. EKG obtained. Patient is not having a STEMI. EKG done at 2234, aFib, rate of 115, normal QT, nonspecific ST-T changes, not a cardiac alert, according to my interpretation. 2236: Amiodarone 300 mg IV given per rental representative recommendations. 2239: ROSC lost. Patient . PROCEDURES: Intubation Time out performed: No (performed emergently) sedative: Etomidate Mg Given: 20 paralytic: Rocuronium Mg Given: 50 Laryngoscope: fiber optic video scope Assist Device Used: fiber optic device ET Tube Size: 7.5 ET Tube Uncuffed: No Tube Secured Depth (cm): 23 Tube Secured Location: other (gum) Tube Placement Confirmation: visualized tube passing through cords, equal breath sounds bilaterally, no breath sounds over epigastrium and confirmation by capnometry Patient Tolerated Procedure: well and no complications Critical Care Time: 45 minutes The high probability of sudden, clinically significant deterioration in the patient?s condition required the highest level of my preparedness to intervene urgently. The services I provided to this patient were to treat and/or prevent clinically significant deterioration. Services included the following: chart data review, reviewing nursing notes and/or old charts, documentation time, datapower consultant collaboration regarding findings and treatment options, medication orders and management, direct patient care, vital sign assessments and ordering, interpreting and reviewing diagnostic studies and lab tests. Aggregate critical care time includes only time during which I was engaged in work directly related to the patient?s care, as described above, whether at bedside or elsewhere in the Emergency Department. It did not include time spent performing other reported procedures or the services of residents, students, nurses or physician assistants. <Aida Pedroza MD - Last Filed: 08/30/25 04:36> Addendum Narrative: I was examining another patient when this patient's family member stepped out and called for help. I went and examined the patient, patient with agonal respirations not following commands, tremor appreciated. Patient was immediately moved to a trauma bed. 2150: Code blue initiated overhead. CPR started. 220: ROSC obtained. See code sheet for medication details. 2202: FSBS 156. 2203: Code blue initiated overhead. CPR started. 2205: Patient intubated by me. See procedure note below. 2208: Dr. Diamond, rental representative, was consulted. Recommends getting STAT EKG and administering thrombolytics if the patient is having a STEMI. 2210: ROSC obtained. 2211: Code blue initiated overhead. CPR started. 2218: ROSC obtained. 2220: Code blue initiated overhead. CPR started. 2231: ROSC obtained. I went and had a lengthy discussion with the family regarding the patient's critical condition. They understand all life saving measures are being made and state if the patient codes again, to abort further efforts. EKG obtained. Patient is not having a STEMI. EKG done at 2234, aFib, rate of 115, normal QT, nonspecific ST-T changes, not a cardiac alert, according to my interpretation. 2236: Amiodarone 300 mg IV given per rental representative recommendations. 2239: ROSC lost. Patient . PROCEDURES: Intubation Time out performed: No (performed emergently) sedative: Etomidate Mg Given: 20 paralytic: Rocuronium Mg Given: 50 Laryngoscope: fiber optic video scope Assist Device Used: fiber optic device ET Tube Size: 7.5 ET Tube Uncuffed: No Tube Secured Depth (cm): 23 Tube Secured Location: other (gum) Tube Placement Confirmation: visualized tube passing through cords, equal breath sounds bilaterally, no breath sounds over epigastrium and confirmation by capnometry Patient Tolerated Procedure: well and no complications Critical Care Time: 45 minutes The high probability of sudden, clinically significant deterioration in the patient?s condition required the highest level of my preparedness to intervene urgently. The services I provided to this patient were to treat and/or prevent clinically significant deterioration. Services included the following: chart data review, reviewing nursing notes and/or old charts, documentation time, datapower consultant collaboration regarding findings and treatment options, medication orders and management, direct patient care, vital sign assessments and ordering, interpreting and reviewing diagnostic studies and lab tests. Aggregate critical care time includes only time during which I was engaged in work directly related to the patient?s care, as described above, whether at bedside or elsewhere in the Emergency Department. It did not include time spent performing other reported procedures or the services of residents, students, nurses or physician assistants.
[2025-08-29 22:48] LABS: Basophils # (Auto) 0.0 Thou/mm3 (0.0-0.2); Basophils % (Auto) 0 % (0-2.5); Eosinophils # (Auto) 0.0 Thou/mm3 (0.0-0.5); Eosinophils % (Auto) 0 % (0-10); Hematocrit 23.8 % (36.0-46.0); Immature Granulocytes Auto 0.13 Thou/mm3 (0.00-0.00); Lymphocytes # (Auto) 3.3 Thou/mm3 (1.0-4.8); Lymphocytes % (Auto) 47 % (10-50); Mean Corpuscular HGB Conc 29.0 g/dl (31.0-37.0); Mean Corpuscular Hemoglobin 28.5 pg (25.0-35.0); Mean Corpuscular Volume 98 fL (80-100); Monocytes # (Auto) 0.4 Thou/mm3 (0.0-0.8); Monocytes % (Auto) 5 % (0-12); Neutrophils # (Auto) 3.2 Thou/mm3 (1.8-7.7); Neutrophils % (Auto) 45 % (37-80); Nucleated Red Blood Cell # 0.06 Thou/mm3 (0.00-0.00); Nucleated Red Blood Cell % 1 /100 WBC (0); Platelet Count 143 Thou/mm3 (140-440); RDW Standard Deviation 54.2 fL (36.4-46.3); Red Blood Count 2.42 Miln/mm3 (4.00-5.20); White Blood Count 7.0 Thou/mm3 (3.6-11.0)
[2025-08-29 23:00] LABS: Hemoglobin 6.9 g/dL (12.0-16.0)
--- NOTE | 2025-08-29 23:01 | PD.DPN ---
Documentation for date of: 08/29/25 Pronouncement Note Date and Time of Date of : 08/29/25 Time of : 22:39 PCOD Preliminary cause of : Cardiopulmonary arrest Contributing Factors (1) Non-ST elevation RI (NSTEMI): Summary Additional details: On 2149, patient was found to have no pulse, so [facility] was called and CPR was started immediately. The patient received 5 rounds of CPR for pulseless electrical activity, 3 pushes of epinephrine, 1 push of bicarb, and 1 push of calcium gluconate. On the fifth pulse check, patient was found to have a pulse and so CPR was stopped at 2200. Etomidate and rocuronium was administered in preparation for intubation. Multiple causes for the patient's cardiopulmonary arrest was considered, with the most likely being secondary to her NSTEMI that the patient presented with. 2 minutes later at 2202, the patient would lose her pulse, and so [facility] was called a second time and CPR was resumed. At 2204, patient was intubated and epinephrine drip was started. The patient's niece, Sharla, was contacted at 2205 who was made aware of the patient's condition. The patient's family members stated that they will be coming to the ED and to continue with the chest compressions. The patient would go through 3 rounds of CPR for pulseless electrical activity, 2 pushes of epinephrine, and 1 push of bicarb. On the third pulse check, patient was found to have a pulse and CPR was stopped at 2210. Bedside echocardiogram showed pericardial effusion, with difficulty determining cardiac wall motion. The patient with once again lose her pulse a minute later at 221, so [facility] was called once again and CPR was resumed. The patient would go through 3 rounds of CPR for pulseless electrical activity, 1 push of epinephrine, and 1 push of bicarb. On the third pulse check, the patient was found to have a pulse and CPR was stopped at 2218. Patient was given additional push of epinephrine and started on epinephrine drip. The patient would once again lose ROSC at 2220, so [facility] was called again and CPR was resumed. 5 rounds of CPR for pulseless electrical activity was performed with 3 pushes of epinephrine given. On fifth pulse check, patient was found to have a pulse, so CPR was stopped at 223. Cardiology was called during this CODE BLUE, who recommended amiodarone 300 mg and starting the patient on amiodarone drip. Amiodarone was given at 2235. The patient's family would then be updated on the patient's status, emphasizing the highly guarded prognosis of the patient given repeated code blues. The patient's family was informed that the patient would be upgraded to the ICU for further care. However, on 2237, the patient would once again lose her pulse. Given the multiple rounds of CPR, multiple losses of ROSC, and overall poor prognosis for recovery, medical staff led by ED physician Dr. Pedroza opted to not perform any further CPR. Patient was seen and examined at the bedside, no pulses could be felt, no cardiac sounds were heard after 1 continuous minute of auscultation, no breath sounds heard, and pupils were fixed and dilated. Patient pronounced at 2239 on 08/29/2025. Patient plan of care was discussed with the senior resident Dr. Alford (PGY-2) and attending physician Dr. Joce Rubalcava, PGY1 Additional Data Confirmation of : no pulse, no respirations, no heart sounds and pupils fixed and dilated Family: contacted Attending/PCP notified?: Yes Attending physician: Leonor Robb MD Was code activated?: Yes
[2025-08-29 23:13] LABS: Alanine Aminotransferase 48 U/L (10-49); Albumin, Serum 2.1 gm/dL (3.4-4.8); Albumin/Globulin Ratio 1.5 (1.2-2.2); Alkaline Phosphatase 60 U/L (46-116); Anion Gap 12 (7-16); Aspartate Amino Transferase 226 U/L (0-34); BUN/Creatinine Ratio 18 Ratio (12-20); Bilirubin,Total < 0.2 mg/dL (0.3-1.2); Blood Urea Nitrogen 9 mg/dL (9-23); Chloride 122 mMol/L (98-107); Creatinine (Component) 0.5 mg/dL (0.6-1.3); Estimated Creatinine Clearance 84.6 mL/min (>60); Globulin 1.4 gm/dL (2.3-3.5); Glucose 131 mg/dL (74-106); Magnesium 1.6 mg/dL (1.6-2.6); Osmolality,Calculated 294 (275-295); Phosphorous 3.3 mg/dL (2.4-5.1); Potassium 3.2 mMol/L (3.4-5.1); Sodium 148 mMol/L (136-145); Total Protein 3.5 gm/dL (5.7-8.2); eGFR > 60 See Note
[2025-08-29 23:17] LABS: Carbon Dioxide 13.8 mMol/L (20.0-31.0)
[2025-08-29 23:18] LABS: Calcium 20.5 mg/dL (8.3-10.6); Calcium (Corrected) 22.0 mg/dL (8.5-10.1)
--- NOTE | 2025-08-29 23:38 | PC.NURSE ---
Called Donor network at 1102, 08/29/2025, Pt is suitable for tissue donation. Spoke with Landen Villa,
--- NOTE | 2025-08-30 00:06 | PC.NURSE ---
At 2150 pt was moved to code room 5 after patient's family yelling for help that the patient stopped breathing. Doctor was at bedside entire time, See code sheets.
--- NOTE | 2025-08-30 00:19 | PC.NURSE ---
rescue instructor called at 0015, spoke with Lucy, ref number#[id number]
== END 2025-08-29 22:40 | disposition expired ==
LOC: SERX 13:50 → SERHOLD 15:09
PROVIDERS: Nurse Practitioner Family; Admitting Provider Internal Medicine; Emergency Provider Emergency Medicine; Visit Provider Internal Medicine
DX: I21.4 Non-ST elevation (NSTEMI) myocardial infarction (principal); I31.39 Other pericardial effusion (noninflammatory); F41.9 Anxiety disorder, unspecified; F32.A Depression, unspecified; I46.2 Cardiac arrest due to underlying cardiac condition; K45.8 Other specified abdominal hernia without obstruction or gangrene; Z79.02 Long term (current) use of antithrombotics/antiplatelets; Z79.82 Long term (current) use of aspirin; Z79.899 Other long term (current) drug therapy; Z90.49 Acquired absence of other specified parts of digestive tract; Z90.710 Acquired absence of both cervix and uterus
CPT/HCPCS: 36415; 71045; 80053; 81001; 83036; 83735; 83880; 84100; 84439; 84443; 84484; 85025; 85730; 92950; 93005; 96374; 96375; 99284; J0164; J0168; J0282; J1644; J2270; J2405; J3490; A9270